=== PATIENT | female | born 1960 | race Two or more races ===

== ENCOUNTER 2024-04-22 12:13 | Emergency (ER) | payer OTHER ==
[~2024-04-22] VITALS: Ht 162.6 cm; Wt 89.4 kg
[2024-04-22] MEDS ORDERED: TOPROL XL50 M1 (12:42)
[2024-04-22] MEDS ORDERED: CRESTOR40 MG PO (12:42)
[2024-04-22] MEDS ORDERED: ELIQUIS5 MG PO (12:43)
[2024-04-22] MEDS ORDERED: SYNTHROID137 MCG PO (12:43)
[2024-04-22 14:47] LABS: HEMOGLOBIN 12.4 g/dL (12.0-15.00); MEAN CELL VOLUME 70.1 fL (80.00-100.00); MEAN CORPUSCULAR HEMOGLOBIN 22.3 pg (27.00-32.0); MEAN CORPUSCULAR HGB CONC 31.8 g/dl (32.0-36.0); PLATELET COUNT 174 K/uL (150-450); RED BLOOD COUNT 5.56 M/uL (4.00-6.00); RED CELL DISTRIBUTION WIDTH 16.9 % (11.5-14.5)
[2024-04-22] MEDS ORDERED: OSELTAMIVIR PHOSPHATE 75 MG CAPSULE PO ONE ×2 (15:40→15:45)
[2024-04-22 16:36] LABS: CALCIUM 8.3 mg/dL (8.5-10.1); CREATININE SERUM 1.15 mg/dL (0.55-1.02); GFR 47.66; POTASSIUM 4.19 mEq/L (3.5-5.1)
[2024-04-22 17:11] LABS: ABG PH 7.408 (7.35-7.45); ABG PO2 74.6 mmHg (80-100); BASE EXCESS -1.9 mmol/l; BICARBONATE 22.2 mmol/l (23-25); SaO2 94.8 %; Tco2 23.3 mmol/l
[2024-04-22 17:12] LABS: allen test SATISFACTORY; o2 21 %; puncture site RADIAL RIGHT
[2024-04-22 18:12] LABS: PH,URINE 5.5 (5.0-8.0); URINE APPEARANCE Clear; URINE BILIRRUBIN Negative (NEGATIVE); URINE BLOOD Negative; URINE COLOR Yellow; URINE GLUCOSE Negative (NEGATIVE); URINE KETONE Negative (NEGATIVE); URINE LEUKOCYTE Negative; URINE NITRATE Negative; URINE PROTEIN Trace (NEGATIVE); URINE UROBILINOGEN 0.2 E.U./dl
[2024-04-22 18:15] LABS: URINE BACTERIA 19.5 uL (0.0-1933); URINE CAST 2.35 uL (0.0-1.40); URINE EPITHELIAL CELLS 19.7 uL (0.0-38.8); URINE WBC 9.1 uL (0.0-23.2)
== END 2024-04-23 00:37 | disposition home or self-care (01) ==
LOC: ER 12:15
PROVIDERS: Emergency Medicine
DX: J10.1 Influenza due to other identified influenza virus with other respiratory manifestations (principal); J22 Unspecified acute lower respiratory infection; Z20.822 Contact with and (suspected) exposure to COVID-19; I10 Essential (primary) hypertension; E11.9 Type 2 diabetes mellitus without complications; Z79.84 Long term (current) use of oral hypoglycemic drugs; E03.9 Hypothyroidism, unspecified; Z88.6 Allergy status to analgesic agent